=== PATIENT | male | born 1945 | race Two or more races ===

== ENCOUNTER 2017-06-17 13:16 | Inpatient (IN) | payer MEDICARE, OTHER ==
[~2017-06-17] VITALS: Ht 177.8 cm; Wt 105.8 kg
[2017-06-17] MEDS ORDERED: SODIUM CHLORIDE 0.9% 1,000 ML IV ONE (13:21)
[2017-06-17] MEDS ORDERED: PLEASE ENTER ALLERGIES MC SCH ×2 (13:30)
[2017-06-17] MEDS ORDERED: SODIUM CHLORIDE FLUSH 10ML SYR IVF ONE (13:30)
[2017-06-17] MEDS ORDERED: PLEASE ENTER HEIGHT AND WEIGHT MC SCH (13:30)
[2017-06-17] MEDS ORDERED: MECLIZINE CHEWABLE 25 MG TAB PO ONE (13:30)
[2017-06-17] MEDS ORDERED: FAMO40TA61 PO (13:45)
[2017-06-17] MEDS ORDERED: LOVA10TA PO (13:45)
[2017-06-17] MEDS ORDERED: HYDR12.53 PO (13:45)
[2017-06-17] MEDS ORDERED: ASPI-496 PO (13:45)
[2017-06-17 13:51] LABS: HEMATOCRIT 48.5 % (39.2-51.8); HEMOGLOBIN 16.3 g/dL (13.7-18.0); WHITE BLOOD COUNT 10.6 x10^3/uL (3.4-10)
[2017-06-17 14:03] LABS: ASPARTATE AMINO TRANSFERASE 19 U/L (15-37); BLOOD UREA NITROGEN 19 mg/dL (7-18)
[2017-06-17 14:08] LABS: IS PT STATUS REG ER OR PRE ER? YES
[2017-06-17] MEDS ORDERED: MECLIZINE CHEWABLE 25 MG TAB ONE (14:12)
[2017-06-17] MEDS ORDERED: POTASSIUM CHLORIDE 40 MEQ in SODIUM CHLORIDE 0.9% 1,000 ML IV ONE (14:13)
[2017-06-17] MEDS ORDERED: NS + 40MEQ KCL 1,000 ML IV ONE (14:31)
[2017-06-17] MEDS ORDERED: OMNIPAQUE 350 MG/ML, 100ML BOTTLE ONE (15:05)
[2017-06-17] MEDS ORDERED: ONDANSETRON 2MG/ML, 2ML ONE (16:11)
[2017-06-17] MEDS ORDERED: ONDANSETRON 2MG/ML, 2ML IVPush ONE (16:30)
[2017-06-17] MEDS ORDERED: SODIUM CHLORIDE FLUSH 10ML SYR IVF PRN (16:30)
[2017-06-17] MEDS ORDERED: hydrALAzine 20 MG/ML, 1ML IV PRN (17:30)
[2017-06-17] MEDS ORDERED: morphine SULFATE 10 MG/ML, 1ML IVPush PRN (17:30)
[2017-06-17] MEDS ORDERED: ONDANSETRON 2MG/ML, 2ML IVPush PRN (17:30)
[2017-06-17] MEDS ORDERED: POTASSIUM CHLORIDE 40 MEQ in SODIUM CHLORIDE 0.9% 500 ML IV ONE (18:00)
[2017-06-17 20:04] VITALS: BP 144/90
[2017-06-17] MEDS ORDERED: ASPIRIN 81 MG TABLET EC PO SCH (21:00)
[2017-06-17] MEDS ORDERED: LOVASTATIN 40 MG TABLET PO SCH (21:00)
[2017-06-17] MEDS: SODIUM CHLORIDE 0.9% 1,000 ML IV SCH (21:04)
[2017-06-17] MEDS: PANTOPRAZOLE 40 MG IV IVPush SCH (21:10)
[2017-06-18 00:57] VITALS: BP 137/86
[2017-06-18 05:55] LABS: BLOOD UREA NITROGEN 13 mg/dL (7-18)
[2017-06-18] MEDS: SODIUM CHLORIDE 0.9% 1,000 ML IV SCH (07:30)
[2017-06-18] MEDS: PANTOPRAZOLE 40 MG IV IVPush SCH (07:49)
[2017-06-18] MEDS ORDERED: MIDAZOLAM 1 MG/ML, 5ML ONE (07:55)
[2017-06-18] MEDS ORDERED: FENTANYL PF 100 MCG/2ML ONE ×2 (07:55→07:56)
[2017-06-18 07:59] VITALS: BP 149/88
[2017-06-18] MEDS ORDERED: GADOBUTROL 10 MMOL/10 ML PFS ONE (08:52)
[2017-06-18] MEDS ORDERED: FAMOTIDINE 40 MG TABLET PO SCH (09:00)
[2017-06-18 09:14] VITALS: BP 130/89
[2017-06-18] MEDS ORDERED: ONDA4TAB13 SL (10:39)
[2017-06-18] MEDS ORDERED: MECL-76 PO (11:26)
[2017-06-18 12:49] VITALS: BP 130/80
== END 2017-06-18 14:15 | disposition home or self-care (01) | DRG 641 ==
LOC: ED 16:08 → EDIP 16:19 → 4EST 19:44 → DCLOUNGE 06-18 14:00
PROVIDERS: ADMIT Internal Medicine; ATTEND Internal Medicine
DX: E87.6 Hypokalemia (principal); E16.2 Hypoglycemia, unspecified; E78.00 Pure hypercholesterolemia, unspecified; E78.5 Hyperlipidemia, unspecified; I10 Essential (primary) hypertension; I49.3 Ventricular premature depolarization; K21.9 Gastro-esophageal reflux disease without esophagitis; Z86.73 Personal history of transient ischemic attack (TIA), and cerebral infarction without residual deficits; Z79.82 Long term (current) use of aspirin; Z79.899 Other long term (current) drug therapy
CPT/HCPCS: 36415; 70450; 70553; 71010; 71275; 80048; 80053; 81003; 83036; 83735; 84100; 84443; 84484; 85025; 93005; 96365; 96366; 96375; 99156; 99157; A9585; J2250; J2405; J3010; J3480; Q9967; C9113; J7030; J7040